=== PATIENT | male | born 1955 | race Caucasian/White ===

== ENCOUNTER 2021-03-09 05:16 | Observation (INO) | payer BC ==
[2021-03-06 08:48] LABS: BASOPHILS # (AUTO) 0.1 (0.0-0.1); EOSINOPHILS # (AUTO) 0.2 (0.0-0.4); EOSINOPHILS % 4.4 % (0.0-6.0); HEMOGLOBIN 14.6 g/dL (14.0-18.0); LYMPHOCYTES # (AUTO) 1.2 (1.0-3.2); LYMPHOCYTES % 25.4 % (18.0-39.1); MEAN CORPUSCULAR HEMOGLOBIN 30.4 pg (28-32); MEAN CORPUSCULAR HGB CONC 33.2 g/dL (31-35); MEAN CORPUSCULAR VOLUME 91.7 fL (81-99); MONOCYTES # (AUTO) 0.4 (0.2-0.8); MONOCYTES % 8.9 % (4.4-11.3); NEUTROPHILS # (AUTO) 2.9 (2.1-6.9); NEUTROPHILS % 60.1 % (38.7-80.0); PLATELET COUNT 199 x10e3/uL (140-360)
[2021-03-06 09:11] LABS: INR 0.95; PROTHROMBIN TIME 13.3 seconds (11.9-14.5)
[2021-03-06 09:12] LABS: PARTIAL THROMBOPLASTIN TIME 26.8 seconds (23.8-35.5)
[2021-03-06 09:17] LABS: ANION GAP 14.6 mmol/L (8-16); CALCIUM 9.4 mg/dL (8.4-10.2); CREATININE, SERUM 1.27 mg/dL (0.72-1.25); POTASSIUM 4.6 mmol/L (3.5-5.1)
[~2021-03-09] VITALS: Ht 180.3 cm; Wt 117.9 kg
[~2021-03-09 05:16] MED LIST: ALFUZOSIN HCL10 MG PO; AMLODIPINE BESY10 MG PO; ATENOLOL50 MG PO; CALCIUM PO; COLOSTRUM500 MG PO; GLUCOSA-CHOND-1 EACH PO; LOSARTAN POTAS100 MG PO; MAGNESIUM PO; MULTI-VITAMIN1 EACH PO; PROTONIX20 MG PO; VITAMIN D PO; WELCHOL625 MG PO; [UNRECOGNIZED DRUG - OTHER] PO
[2021-03-09] MEDS ORDERED: CEFAZOLIN SOD 1 GM/NS 50ML 100 ML IV ONE (06:14)
[2021-03-09] MEDS ORDERED: THROMBIN FOR SOLN 5,000 UNIT VIAL ONE (06:41)
[2021-03-09] MEDS ORDERED: BUPIVACAINE 0.5%/EPI 30 ML SDV INJ ONE (06:41)
[2021-03-09] MEDS ORDERED: VANCOMYCIN HCL 1 GM VIAL ONE (06:41)
[2021-03-09] MEDS ORDERED: LIDOCAINE HCL (LTA) 4 ML SOLN ONE (07:24)
[2021-03-09] MEDS ORDERED: ACETAMINOPHEN 1000 MG/100 ML 100 ML IV ONE (07:24)
[2021-03-09] MEDS ORDERED: IBUPROFEN 800MG/ 200ML 200 ML IV ONE (07:24)
[2021-03-09] MEDS ORDERED: HYDROCODON-ACE1 EA12 PO (09:37)
[2021-03-09] MEDS ORDERED: ONDANSETRON HCL INJ 2MG/ML 2ML 2 MG/ML VIAL IV PRN (09:45)
[2021-03-09] MEDS ORDERED: CEPACOL SORE THROAT LOZENGES PO PRN (09:45)
[2021-03-09] MEDS ORDERED: MAGNESIUM/ALUMINUM/SIMETHICONE 30 ML UDC PO PRN (09:45)
[2021-03-09] MEDS ORDERED: PROMETHAZINE HCL (IM) 25 MG/ML VIAL IM PRN (09:45)
[2021-03-09] MEDS ORDERED: MORPHINE SULFATE 5 MG/ML VIAL IM PRN (09:45)
[2021-03-09] MEDS ORDERED: ACETAMINOPHEN 325 MG TAB PO PRN (09:45)
[2021-03-09] MEDS ORDERED: HYDROMORPHONE 2MG/ML 2 MG/ML ML IV PRN (09:45)
[2021-03-09] MEDS ORDERED: FENTANYL CITRATE/PF 100MCG/2 ML INJ ONE ×2 (10:01→13:20)
[2021-03-09] MEDS: LACTATED RINGER'S 1,000 ML IV SCH ×2 (10:45→18:05)
[2021-03-09 10:50] VITALS: BP 136/82
[2021-03-09 11:03] VITALS: BP 136/82
[2021-03-09 11:04] VITALS: BP 136/82
[2021-03-09] MEDS: COLESEVELAM HCL 625 MG TAB PO SCH ×2 (12:00→16:31)
[2021-03-09] MEDS ORDERED: ONDANSETRON HCL INJ 2MG/ML 2ML 2 MG/ML VIAL ONE (12:58)
[2021-03-09] MEDS ORDERED: ROCURONIUM BROMIDE 10 MG/ML 5ML VIAL IV ONE (12:58)
[2021-03-09] MEDS ORDERED: DEXAMETHASONE SOD PHOS INJ 4 MG/ML VIAL ONE (12:58)
[2021-03-09] MEDS ORDERED: NEOSTIGMINE 1 MG/ML 10ML VIAL ONE (12:58)
[2021-03-09] MEDS ORDERED: POVIDONE IODINE 0.05% 0.05 % ML PO ONE (12:58)
[2021-03-09] MEDS ORDERED: SEVOFLURANE INHAL SOLN 250 ML PEN BTL ONE (12:58)
[2021-03-09] MEDS ORDERED: LIDOCAINE HCL 2% JELLY 5 ML TUBE ONE (12:58)
[2021-03-09] MEDS ORDERED: GLYCOPYRROLATE INJ 0.2 MG/ML VIAL ONE (12:58)
[2021-03-09] MEDS ORDERED: LIDOCAINE HCL 2% LOCAL INJ 5 ML SDV VIAL INJ ONE (12:58)
[2021-03-09] MEDS ORDERED: PROPOFOL IV EMULSION 10 MG/ML 20 ML VIAL ONE (12:58)
[2021-03-09] MEDS ORDERED: EPHEDRINE SULFATE INJ 50 MG/ML VIAL ONE (12:58)
[2021-03-09] MEDS ORDERED: MIDAZOLAM HCL 2 MG/2 ML VIAL ONE (13:20)
[2021-03-09] MEDS: OXYCODONE/ACETAMINOPHEN 5-325 1 EACH TABLET PO PRN ×2 (13:25→18:11)
[2021-03-09] MEDS: CARISOPRODOL 350 MG TAB PO PRN ×2 (13:25→18:11)
[2021-03-09 15:55] VITALS: BP 126/81
[2021-03-09] MEDS: [UNRECOGNIZED DRUG - OTHER] PO SCH (16:23)
[2021-03-09] MEDS: [UNRECOGNIZED DRUG - OTHER] PO SCH (16:23)
[2021-03-09] MEDS: CEFAZOLIN SOD 1 GM/NS 50ML 50 ML IV SCH (16:31)
[2021-03-09 20:00] VITALS: BP 118/71
[2021-03-09 20:51] VITALS: BP 118/71
[2021-03-09] MEDS ORDERED: ZOLPIDEM TARTRATE 5 MG TAB PO PRN (21:00)
[2021-03-10] VITALS: BP 110/68
[2021-03-10] MEDS: CEFAZOLIN SOD 1 GM/NS 50ML 50 ML IV SCH ×2 (00:43→08:15)
[2021-03-10] MEDS: LACTATED RINGER'S 1,000 ML IV SCH ×2 (02:25→08:20)
[2021-03-10 05:22] VITALS: BP 121/80
[2021-03-10] MEDS: CARISOPRODOL 350 MG TAB PO PRN (06:48)
[2021-03-10] MEDS: OXYCODONE/ACETAMINOPHEN 5-325 1 EACH TABLET PO PRN (06:48)
[2021-03-10] MEDS: COLESEVELAM HCL 625 MG TAB PO SCH (08:00)
[2021-03-10 08:08] VITALS: BP 120/69
[2021-03-10 08:37] VITALS: BP 128/73
[2021-03-10] MEDS ORDERED: LOSARTAN POTASSIUM 100 MG TAB PO SCH (09:00)
[2021-03-10] MEDS ORDERED: ATENOLOL 50 MG TAB PO SCH (09:00)
[2021-03-10] MEDS: [UNRECOGNIZED DRUG - OTHER] PO SCH (09:00)
[2021-03-10] MEDS ORDERED: ALFUZOSIN HCL 10 MG TAB.ER.24H PO SCH (09:00)
[2021-03-10] MEDS: [UNRECOGNIZED DRUG - OTHER] PO SCH (09:00)
[2021-03-10] MEDS ORDERED: PANTOPRAZOLE SOD 40 MG TABEC PO SCH (09:00)
[2021-03-10] MEDS ORDERED: AMLODIPINE BESYLATE 10 MG TAB PO SCH (09:00)
[2021-03-10] MEDS ORDERED: MULTIVITAMINS/MINERALS TAB PO SCH (09:00)
[2021-03-10 09:20] VITALS: BP 128/73
== END 2021-03-10 10:45 | disposition home or self-care (01) ==
LOC: OR 05:16 → PACU V 09:49 → MED/SURG 10:34
PROVIDERS: ADMIT Neurological Surgery; ATTEND Neurological Surgery
CPT/HCPCS: 36415; 71046; 72040; 77003; 80048; 85025; 85610; 85730; 86850; 86900; 88304; 88311; 93005; C1713; G0378; J0690; J1100; J2001; J2250; J2405; J2710; J3010; J3370; J7121; U0002